=== PATIENT | male | born 1950 | race Caucasian/White ===

== ENCOUNTER 2017-06-25 14:00 | Inpatient (IN) | payer MEDICARE, BC ==
[~2017-06-25] VITALS: Ht 175.3 cm; Wt 94.4 kg
--- NOTE | ~2017-06-25 | HP ---
PATIENT'S NAME: VICKI ALBERT [facility] AGE: 66 Y [address] ROOM: [place] [address] LOCATION: [facility] ADMIT DATE: 06/25/2017 History & Physical DISCHARGE DATE: FAMILY PHYSICIAN: Marquis Lyons MD ATTENDING PHYSICIAN: Navya GALVEZ DATE OF SERVICE: CHIEF COMPLAINT: Left-sided jaw pain. HISTORY OF PRESENT ILLNESS: The patient is a 66-year-old male, who since the 19 of June has had nagging jaw pain morphing into fever, edema, and trismus. He is evaluated at his dentist on the and felt that he needed to have a root canal. While in the process of that in [place] on the day, I found a tooth that was cracked and infected and sent him for further evaluation. He had been placed on amoxicillin at that time without any further relief of his symptoms. He did golf on Sunday, but then slept all day and felt warm. His temp at the primary care office was 102, this morning. He did take some oxycodone for help with the pain, but is not noticing any resolution of his symptoms. His local physician Rajani Cosme contacted Dr. Duran, who recommended transfer for further evaluation and treatment. The patient has a benign past medical history, including history of hypertension for which he takes no medications and history of dyslipidemia for which he takes no medications. The patient lives an active healthy lifestyle. No recent illnesses. Denies any chest pain, pressure, or palpitations, or orthopnea, or orthostasis PND. Denies any shortness of breath, coughing, wheezing, or hemoptysis. The patient is admitted at this time for IV antibiotics and further evaluation. PAST MEDICAL HISTORY: Illnesses includes history of hypertension and erectile dysfunction. PAST SURGICAL HISTORY: Includes tonsillectomy and a screening colonoscopy in July 2013, which was normal. SOCIAL HISTORY: The patient is retired. He is . He denies any tobacco use. He does drink two beers daily. FAMILY HISTORY: Significant for liver and colon cancer in his father. His mom at the age PATIENT'S NAME: VICKI ALBERT [facility] AGE: 66 Y [address] ROOM: [address] [address] LOCATION: [facility] ADMIT DATE: 06/25/2017 History & Physical DISCHARGE DATE: FAMILY PHYSICIAN: Marquis Lyons MD ATTENDING PHYSICIAN: Navya GALVEZ of 89. He had one brother with asthma and a brother, who had an NV. ALLERGIES: NO KNOWN MEDICAL ALLERGIES. CURRENT MEDICATIONS: 1. The patient currently finishing amoxicillin 1 tablet twice daily unknown strength. 2. Oxycodone 5/325 1 tablet every 6 hours as needed. REVIEW OF SYSTEMS: The patient's complete review of systems was obtained and is negative apart from that mentioned in the HPI. PHYSICAL EXAMINATION: VITAL SIGNS: Temp now is 99.4, pulse is 66, respirations 20, blood pressure is 129/70s, 96% on room air. His weight is 94.4 kilos. HEENT: Head: He does have edema and erythema noted to the left side of the jaw and extending into the neck, otherwise atraumatic. Eyes: PERRLA. EOMI. Ears: TMs are intact, nonerythematous. Canals are clear. Nose: Patent. Mouth: Mucosa is pink and moist. Posterior pharynx nonerythematous. He does have some whiteness and edema in the buccal mucosa on the left. Right side is unremarkable. The patient has minimal opening of his mouth with significant pain. No clunking with jaw movement and definite pain in the TMJ. NECK: Supple. He does have positive adenopathy noted on the left along with a submandibular fullness and induration noted. Pain with palpation is noted. No carotid bruits or JVD noted. LUNGS: Clear to auscultation and percussion bilaterally. Breath sounds are even and regular throughout. HEART: Regular rate and rhythm without murmur. No carotid bruits or JVD. ABDOMEN: Soft, nondistended. Positive bowel sounds auscultated. No masses or organomegaly palpated. EXTREMITIES: Free of edema cyanosis or clubbing. SKIN: Free of rash or lesions. NEUROLOGIC: Cranial nerves II through XII grossly intact. No focal or sensory deficits noted. PSYCHIATRIC: The patient's mood and affect is appropriate for the condition. LABORATORY DATA: Laboratory studies from transferring facility shows a white blood cell count of 9.03, hemoglobin 14.3, hematocrit 41.5, and platelets 158. Sodium 129, potassium 4.3, chloride 95, bicarb 26, glucose 120, BUN 9.9, and creatinine 0.8. CT scan report shows myositis and microabscesses involving the mylohyoid and PATIENT'S NAME: VICKI ALBERT [facility] AGE: 66 Y [address] ROOM: [place] [address] LOCATION: [facility] ADMIT DATE: 06/25/2017 History & Physical DISCHARGE DATE: FAMILY PHYSICIAN: Marquis Lyons MD ATTENDING PHYSICIAN: Navya GALVEZ medial pterygoid muscles within the left oropharyngeal region also asymmetric mucosal thickening involving the left piriform sinus, which may represent 2nd site of inflammation and reactive left cervical chain lymph nodes noted. IMPRESSION: 1. Left submandibular abscess with 2nd molar tooth infection. We will continue on clindamycin at this time after Dr. Duran's review. Blood cultures have been drawn. Dr. Duran recommended observation at this time with potential OR tomorrow. 2. History of hypertension. The patient is currently not on any medications. We will continue to monitor. 3. Hyponatremia, mild. We will start some normal saline and monitor. 4. DVT prophylaxis with SCDs. CODE STATUS: Full code. We do appreciate participating in this patient's care. Thank you very much for the ability to serve him while hospitalized at [facility]. Dr. Galvez was present during the evaluation and assessment of this patient. Further orders will be forthcoming. JAVON ROTH FOR NAVYA GALVEZ MD GIRISH/modl /[id number] D: T: 855 HISTORY & PHYSICAL
--- NOTE | ~2017-06-25 | DS ---
PATIENT'S NAME: VICKI ALBERT [facility] AGE: 66 Y [address] ROOM: [address] [address] LOCATION: [facility] [place] ADMIT DATE: 06/25/2017 Discharge Summary DISCHARGE DATE: 06/28/2017 FAMILY PHYSICIAN: Marquis Lyons MD ATTENDING PHYSICIAN: Navya Galvez PRINCIPAL DIAGNOSES: 1. Abscessed tooth #18. 2. Left mandibular abscess. 3. Left jaw pain secondary to abscessed tooth #18. 4. Obesity. 5. History of hypertension, currently diet and activity controlled. HOSPITAL COURSE: Please reference any admitting data to the history and physical as dictated by Nini Escobedo PA-C. Briefly, a 66-year-old male, who had had progressive left-sided jaw pain, was admitted with findings consistent with left submandibular abscess and second molar tooth infection. We placed him on clindamycin and gave symptomatic pain management and consulted orofacial surgeon, Dr. Duran. Laboratory investigation did not find any evidence of sepsis. Blood cultures drawn, did not show any growth. He was observed for 24-hour period and still persisted with pain, so it was elected to be taken to surgery, which risks and benefits were given, informed consent was obtained. The patient was taken down per Dr. Duran to the operating room where he had an extraction of tooth #18 as well as incision and drainage and irrigation of the submandibular area. Drains were left in place in the submandibular area with appropriate dressing and wound care. The patient returned to the floor without complications. He continued to receive IV antibiotics and pain management. He tolerated clear to soft diet. DVT prophylaxis was maintained with Lovenox. Cultures were monitored, ended up showing Streptococcus species, gram-positive cocci, and common diphtheroid. The patient continued to improve, and Dr. Duran did remove the drains, and he was felt stable enough for discharge. Per note, the patient was kept on prophylaxis to include probiotic, stool softeners, and Lovenox for DVT prophylaxis. CONSULTING PROVIDER: Dr. Duran, orofacial surgeon. PROCEDURE: Tooth #18 extraction with irrigation and debridement of submandibular abscess on 06/26/2017. LABORATORY RESULTS: Initial CBC showed a white blood cell count of 7.0, PATIENT'S NAME: VICKI ALBERT [facility] AGE: 66 Y [address] ROOM: [address], [place] [address] LOCATION: [facility] [place] ADMIT DATE: 06/25/2017 Discharge Summary DISCHARGE DATE: 06/28/2017 FAMILY PHYSICIAN: Marquis Lyons MD ATTENDING PHYSICIAN: Navya Galvez hemoglobin of 13.9, hematocrit of 40.7, and a platelet count of a 134. A chemistry panel showed a glucose of 129, BUN of 12, creatinine of 0.9, sodium 138, potassium 4.4, chloride 105, CO2 of 26, and magnesium of 2.2. Cultures taken from surgery showed diphtheroid, gram-positive cocci, Streptococcus species. Possible anaerobes with subcultures pending. Blood cultures were no growth to date at the time of discharge. DISCHARGE MEDICATIONS: 1. Peridex rinse orally twice daily for 7 days. 2. Colace 100 mg p.o. twice daily while on narcotics, hold for any loose stools. 3. Florastor 250 mg p.o. twice daily for 7 days. 4. Percocet 5/325 mg 1 tablet p.o. every 6 hours as needed for moderate to severe pain, not to be used at the same time as Knott. 5. Vitamin B complex 1 tablet p.o. every day. 6. Hydrocodone and acetaminophen 5/325 mg 1 tablet p.o. every 6 hours as needed for [id number] pain, not to be used in conjunction with Percocet. 7. Clindamycin 300 mg 1 tablet p.o. 4 times daily x7 days. DISCHARGE INSTRUCTIONS: The patient will be discharged home with soft diet, activity as tolerated. Dr. Duran to follow up with the patient as per his office. Continue with current dressing cares as per orofacial surgeon. If there is worsening of his condition or drainage from the area or fever, he should contact Dr. Duran's office or his primary care provider or felt urgent or emergent to return to the emergency room. This was all discussed with the patient and spouse, who stated complete understanding of the plan. All questions were answered with statements of satisfaction. Thank you for allowing us to participate in the care of this patient while at [facility]. NEGRO GILLILAND APRN, APRN FOR MD RODNEY ZAMUDIO/david /[id number] PATIENT'S NAME: VICKI ALBERT [facility] AGE: 66 Y [address] ROOM: [place] [address] LOCATION: [facility] [place] ADMIT DATE: 06/25/2017 Discharge Summary DISCHARGE DATE: 06/28/2017 FAMILY PHYSICIAN: Marquis Lyons MD ATTENDING PHYSICIAN: Navya Galvez CC: Cal Duran MD/JACQUIE d: t: 06/29/17 0850, DISCHARGE SUMMARY
--- NOTE | ~2017-06-25 | OR ---
PATIENT'S NAME: VICKI ALBERT [facility] AGE: 66 Y [address] ROOM: [address] [address] LOCATION: [facility] [place] ADMIT DATE: 06/25/2017 OR/Procedure Report DISCHARGE DATE: FAMILY PHYSICIAN: Marquis Lyons MD ATTENDING PHYSICIAN: Navya ZIMMER SURGEON: Cal Zapata MD/JACQUIE PROGRAMMER ANALYST CONSULTANT: DATE OF PROCEDURE: 06/26/2017 PREOPERATIVE DIAGNOSIS: Abscessed tooth #18 and left submandibular abscess. POSTOPERATIVE DIAGNOSIS: Abscessed tooth #18 and left submandibular abscess. PROCEDURE: Extraction of tooth #18 and incision and drainage of left submandibular abscess. BLOOD LOSS: Minimal. OPERATIVE SUMMARY: After adequate IV induction and oral tracheal intubation, the patient was prepped and draped in usual manner for a submandibular approach Extraorally to the left submandibular space. A 2-cm incision was made through skin and subcutaneous tissue down to platysma about 2 cm inferior to the inferior border of the mandible posteriorly. The platysma was bluntly dissected and blunt dissection was used into the left submandibular space and space lingual to the left mandible. We immediately encountered copious superior to the drainage. We then took an aerobic and anaerobic cultures. The wound was irrigated with sterile saline. A quarter-inch [place]or[place] was placed in the depths of the wound and held in place using 4-0 Prolene. Attention was then directed intraorally, tooth #18 was extracted using elevators and forceps without difficulty. The patient was taken to recovery room in stable condition. CAL ZAPATA MD/JACQUIE PUENTEST/modl /[id number] d: t: 06/27/17 0935, OPERATIVE SUMMARY
[2017-06-25] MEDS ORDERED: VITAMIN B COMP1 EAC1 PO (16:18)
[2017-06-25] MEDS ORDERED: NORCO 5-325 TA1 EACH PO (16:19)
[2017-06-25] MEDS ORDERED: AMOXICILLIN875 MG PO (16:23)
--- NOTE | 2017-06-25 17:14 | NUR ---
D: Pt admitted at 1530 from [facility], came with in private care. No real hx other than had a colonoscopy a few yrs ago and old fx left leg from years ago. Around day, left lower tooth was causing pain and difficult to chew. Has seen his primary MD, his dentist, who put him on an ATB and pain meds. Was supposed to have a root canal in [place] but tooth is cracked. Was recommended to come here due to infection of tooth. Pt a/o x2, accompanied with . Quit chewing tobacco approx 4 months ago and drinks 3 drinks of beer daily but has not had one since sunday.
--- NOTE | 2017-06-25 18:11 | NUR ---
Significant Event: Pt c/o left jaw pain, 1 Percocet given at 1755. Started IVF, blood cultures drawn and will start on IVATB this HS. Soft diet, NPO after midnight. Dr. Duran consulted, will see how he does in am after IVATB are started, possible OR tomorrow. Follow up: NPO after midnight
--- NOTE | 2017-06-26 03:39 | NUR ---
Significant Event: A/O X3, SBA to toilet, voids per urinal, rested well, @ bedside. NPO since Midnight. denies need for pain medication. IVF L)hand, oral surgery vs. tooth extraction in office. Follow up: possible Oral surgery today
[2017-06-26 05:36] LABS: HEMATOCRIT 40.7 % (37.0-53.0); HEMOGLOBIN 13.9 g/dL (11.0-16.0); MCH 34.4 pg (27.0-34.0); MCHC 34.2 gm/dL (32.0-36.5); MCV 100.7 fl (83.0-98.0); PLATELET COUNT 134 K/uL (150-450); RBC 4.04 M/uL (3.50-5.50); RDW-CV 11.8 % (11.9-14.6)
[2017-06-26 05:49] LABS: ALBUMIN 3.1 gm/dL (3.5-5.0); ANION GAP 11.4 (10.0-19.0); CALCIUM 8.7 mg/dL (8.5-10.5); CREATININE 0.9 mg/dL (0.6-1.3); MAGNESIUM 2.2 mg/dL (1.8-2.6); POTASSIUM 4.4 mMol/L (3.7-5.1)
[2017-06-26 05:50] LABS: PHOSPHORUS 1.6 mg/dL (2.5-4.9)
[2017-06-26 06:07] LABS: ABSOLUTE NEUTROPHIL CT (ANC) 6.6 K/uL (1.4-9.0); BANDED NEUTROPHIL # 1.4 K/uL (0.0-0.1); BANDED NEUTROPHILS % 20 %; LYMPHOCYTE # 0.4 K/uL (0.8-4.0); LYMPHOCYTE % 6 %; SEGMENTED NEUTROPHIL # 5.2 K/uL (1.4-9.0); SEGMENTED NEUTROPHIL % 74 %
--- NOTE | 2017-06-26 15:45 | NUR ---
Met with patient and his this afternoon as his bedside. Introduced myself and explained my role with the CM department. Patient was independent with all of his care and ADL's prior to this hospitalization. His plan is to return home with his once medically cleared for discharge. He denies any discharge needs or concerns at this time. I will continue to follow and offer supports.
--- NOTE | 2017-06-26 19:23 | NUR ---
D: Patient vital signs stable patient afebrile. Patient dressing to left side of face; under dressing is stacey drain. Drainage on dressing serosang moderate drainage. Patient tooth packing removed when Dr Duran was in room. Reviewed with patient no use of straws and to keep tongue out of area that tooth is removed. Percocet one tab given 1422 for left jaw pain. Patient up in [place] with one assist tolerating excellent.
--- NOTE | 2017-06-27 04:54 | NUR ---
Pt. alert and oriented. RA. VSS - bradycardia at times - normal for patient. IV in L) hand with fluids. ENDY. SBA to BR. Pain meds given x2 with relief. Rested well. Regular soft diet. Oral rinse for mouth. Onyx drain in L) jaw with dressing changes PRN. Cooperative and pleasant with cares.
--- NOTE | 2017-06-27 17:41 | NUR ---
Significant Event: Pt alert and oriented x3. No c/o pain this shift. VSS with some bradycardia, pt states this is normal for him. IV to left hand infusing without problems. No BM since 06/24, new order for colace and probiotic. Zoie drain to left jawline. Dressing changed after shower this am, C/D/I. Changes PRN. Small amount serosanguineous drainage. Pt up in room ad juanpablo. Follow up: Continue plan of care.
--- NOTE | 2017-06-27 20:08 | NUR ---
CHARTING AND ASSESSMENT FINDINGS BY JOHANNA FRANCO HAVE BEEN REVIEWED AND AGREE WITH ASSESSMENT FINDINGS.
--- NOTE | 2017-06-28 04:08 | NUR ---
Pt. alert and oriented. RA. VSS - bradycardic in 40-50's but pt. reports this is normal. IV In L) hand - saline locked with ENDY. Pain med given x1 this shift at HS with relief. Slept well this shift. regular soft diet. Oral rinse for mouth. [place] drain in L) jawline with PRN dressing changes - draining serosanginous. UAL in room. Uses urine for voiding. Drinking well. Plan to d/c to home today. Flu shot is on EMAR to give before d/c.
[2017-06-28] MEDS ORDERED: PERIDEX15 ML PO (14:40)
[2017-06-28] MEDS ORDERED: COLACE100 MG PO (14:41)
[2017-06-28] MEDS ORDERED: FLORASTOR250 MG PO (14:42)
[2017-06-28] MEDS ORDERED: PERCOCET 5-3251 EACH PO (14:43)
[2017-06-28] MEDS ORDERED: CLEOCIN HCL300 MG PO (14:43)
--- NOTE | 2017-06-28 16:00 | NUR ---
DISCHARGE: Pt. and were explained discharge instructions. Educated on new medications, dental abscess. Verbalized understanding of teaching, no questions or concerns. IV removed by primary nurse, left with all belongings and prescriptions. Taken to front door by staff and driven home by . Out at 1600
== END 2017-06-28 16:00 | disposition disaster alternative care site (69) | DRG 158 ==
LOC: GMSU 15:06
PROVIDERS: Physician Assistant; ADMIT Internal Medicine
PROC: 0CDWXZ0 Extraction of Upper Tooth, Single, External Approach (ICD-10-PCS; principal; 2017-06-26)
PROC: 0C9W0Z0 Drainage of Upper Tooth, Open Approach, Single (ICD-10-PCS; principal; 2017-06-26)
DX: K04.7 Periapical abscess without sinus (principal); K12.2 Cellulitis and abscess of mouth; I10 Essential (primary) hypertension; R68.84 Jaw pain; E66.9 Obesity, unspecified; Z68.28 Body mass index [BMI] 28.0-28.9, adult
CPT/HCPCS: G0008; J1650; J7030